=== PATIENT | female | born 1995 | race Caucasian/White ===

== ENCOUNTER 2021-04-18 12:36 | Emergency (ER) | payer SELFPAY ==
--- NOTE | ~2021-04-18 | XR_ITS ---
EXAMINATION: CHEST AND LUMBAR SPINE. CLINICAL INFORMATION: Trauma. Pain. COMPARISON: None TECHNIQUE: 2 views chest and 3 views lumbar spine. FINDINGS: CHEST . The lungs are fairly well-expanded and clear. Heart size and pulmonary vascularity is normal. No gross bony or the body seen. LUMBAR SPINE: There is normal lumbar lordosis. The vertebral heights and alignment is normal. There is loss of L4-L5 and L5-S1 disc height. Rest of the disc heights are unremarkable. No acute fracture, dislocation or lytic process seen. No lytic or sclerotic process seen. XR/XR chest 2V IMPRESSION: Mild degenerative disc changes at L4-L5 and L5-S1 disc levels. No visible acute fracture or dislocation seen. Unremarkable chest exam.
--- NOTE | ~2021-04-18 | CT_ITS ---
EXAM: Noncontrast CT scan of the head and cervical spine. INDICATION: Trauma COMPARISON: None TECHNIQUE: Axial slices were obtained from skull base to vertex and displayed. This was followed by helical, multislice, multidetector axial images from the occiput to the upper thorax. Coronal and sagittal reformats of the cervical spine in addition to coronal reformats of the head were obtained at the technologist workstation. DLP: 1065 mGy-cm FINDINGS: HEAD: There is no evidence of acute intracranial hemorrhage or territorial infarction. No abnormal mass effect or midline shift is appreciated. Hopson-white differentiation is well preserved. No extra-axial fluid collections. The ventricular system and cortical sulci are normal in size. The osseous structures and soft tissues are normal. The visualized paranasal sinuses and mastoid air cells are well aerated. Minimal polypoid mucosal disease of the sphenoid sinus. SPINE: There is mild straightening of the normal cervical lordosis, possibly positional. Cervical vertebral body heights and disc spaces are well-maintained. There is no appreciable degenerative changes of the cervical spine. No prevertebral soft tissue swelling. Visualized lung apices are well aerated. CT/CT cervical spine wo con IMPRESSION: 1. No acute intracranial pathology. 2. No fractures or dislocations of the cervical spine. This CT examination was performed using dose optimization techniques as appropriate, variously including the following: *Automated exposure control *Adjustment of mA and/or kV according to patient size (this includes techniques or standardized protocols for targeted exams where dose is matched to indication/reason for exam; i.e. extremities or head) *Use of iterative reconstruction technique
--- NOTE | ~2021-04-18 | CT_ITS ---
EXAM: Noncontrast CT scan of the head and cervical spine. INDICATION: Trauma COMPARISON: None TECHNIQUE: Axial slices were obtained from skull base to vertex and displayed. This was followed by helical, multislice, multidetector axial images from the occiput to the upper thorax. Coronal and sagittal reformats of the cervical spine in addition to coronal reformats of the head were obtained at the technologist workstation. DLP: 1065 mGy-cm FINDINGS: HEAD: There is no evidence of acute intracranial hemorrhage or territorial infarction. No abnormal mass effect or midline shift is appreciated. Hopson-white differentiation is well preserved. No extra-axial fluid collections. The ventricular system and cortical sulci are normal in size. The osseous structures and soft tissues are normal. The visualized paranasal sinuses and mastoid air cells are well aerated. Minimal polypoid mucosal disease of the sphenoid sinus. SPINE: There is mild straightening of the normal cervical lordosis, possibly positional. Cervical vertebral body heights and disc spaces are well-maintained. There is no appreciable degenerative changes of the cervical spine. No prevertebral soft tissue swelling. Visualized lung apices are well aerated. CT/CT head/brain wo con IMPRESSION: 1. No acute intracranial pathology. 2. No fractures or dislocations of the cervical spine. This CT examination was performed using dose optimization techniques as appropriate, variously including the following: *Automated exposure control *Adjustment of mA and/or kV according to patient size (this includes techniques or standardized protocols for targeted exams where dose is matched to indication/reason for exam; i.e. extremities or head) *Use of iterative reconstruction technique
--- NOTE | ~2021-04-18 | XR_ITS ---
EXAMINATION: CHEST AND LUMBAR SPINE. CLINICAL INFORMATION: Trauma. Pain. COMPARISON: None TECHNIQUE: 2 views chest and 3 views lumbar spine. FINDINGS: CHEST . The lungs are fairly well-expanded and clear. Heart size and pulmonary vascularity is normal. No gross bony or the body seen. LUMBAR SPINE: There is normal lumbar lordosis. The vertebral heights and alignment is normal. There is loss of L4-L5 and L5-S1 disc height. Rest of the disc heights are unremarkable. No acute fracture, dislocation or lytic process seen. No lytic or sclerotic process seen. XR/XR lumbar spine 2-3V IMPRESSION: Mild degenerative disc changes at L4-L5 and L5-S1 disc levels. No visible acute fracture or dislocation seen. Unremarkable chest exam.
[2021-04-18 12:44] VITALS: BP 135/91; PULSE 86; RESP 18; TEMP 36.1; O2SAT 99; BMI 41.1
--- NOTE | 2021-04-18 13:06 | ED_ITS ---
HPI - Back Pain/Injury General Chief Complaint: Back Pain/Injury Stated Complaint: back pain/injury Time Seen by Provider: 04/18/21 13:01 Source: patient and EMS Mode of arrival: EMS Limitations: no limitations History of Present Illness HPI Narrative: This is a 26 years old female was sledding today and hit a tree, she is complaining of neck pain headache lower back pain MD elicited complaint: back injury Pertinent past history: recent trauma Onset (ago): hour(s) (1) Timing: constant Severity: moderate Similar Symptoms Previously: No Quality: dull Location: lumbar spine Exacerbating factors: none Relieving factors: none Related Data Allergies Allergy/AdvReac Type Severity Reaction Status Date / Time amoxicillin Allergy Hives Verified 04/18/21 13:03 Review of Systems Verdana 4l Constitutional: Verdana 4d Constitutional: Verdana 4d Verdana 4d Reports no additional constitutional complaints Verdana 4l ENT: Verdana 4d Reports system reviewed and no additional complaints, except as documented Verdana 4l Respiratory: Verdana 4d Verdana 4d Respiratory: Verdana 4d Reports no additional respiratory complaints Verdana 4l Gastrointestinal: Verdana 4d Gastrointestinal: Verdana 4d Verdana 4d Reports no additional gastrointestinal complaints Verdana 4l Hematologic/Lymphatic: Verdana 4d Hematologic/Lymphatic: Verdana 4d Verdana 4d Reports no additional hematologic/lymphatic complaints PMFSH Past Medical History PMFSH Narrative: depression Social History Social History Alcohol intake: never Use of substances other than those prescribed or required for medical reasons: No Advance Directives: No Advance Directives Information Provided: Yes Patient : No Physical Exam Verdana 4l Vital Signs: Verdana 4d Verdana 4d Vital Signs: Verdana 4d Verdana 4Bd Last Vital Signs Verdana 4d Industrial Sales Manager New 4d Industrial Sales Manager New 4d Temp 98 F 04/18/21 13:43 Industrial Sales Manager New 4d Pulse 82 04/18/21 13:43 Industrial Sales Manager New 4d Resp 17 04/18/21 13:43 BP 114/78 04/18/21 13:43 Pulse Ox 96 04/18/21 13:43 BMI result Body Mass Index 41.1 Const: General: cooperative Nutritional Appearance: well nourished Orientation/consciousness: patient oriented x3 Limitations: no limitations HENMT: Head: Yes normal to inspection Mouth: Normal oral and palatal mucosa present Throat: Yes posterior oropharynx normal Neck: Neck: Yes normal visual inspection and Yes other (tenderness post cspine ) Chest: Chest palpation & inspection: normal inspection of the chest Resp: Effort & Inspection: normal respiratory effort Auscultation: clear to auscultation bilaterally Cardio: Jugular venous distension: no JVD Rate: regular rate Rhythm: regular rhythm GI: Inspection: Yes normal to inspection Palpation (GI): Soft to palpation, not firm, nontender and no guarding Auscultation: normal bowel sounds Skin: General skin exam: no rashes or lesions noted, elasticity normal and turgor normal Rashes: no rashes Neuro: General: patient oriented x3 Course Reevaluation(s) Reevaluation #1: Workup is negative a head CT C-spine chest x-ray and LS-spine no acute fracture okay to discharge on MDM - Back Pain/Injury Imaging Data CT scan - head: Radiologist's impression: FINDINGS: HEAD: There is no evidence of acute intracranial hemorrhage or territorial infarction.? No abnormal mass effect or midline shift is appreciated. Hopson-white differentiation is well preserved.? No extra-axial fluid collections.? The ventricular system and cortical sulci are normal in size. The osseous structures and soft tissues are normal.? The visualized paranasal sinuses and mastoid air cells are well aerated. Minimal polypoid mucosal disease of the sphenoid sinus. SPINE: There is mild straightening of the normal cervical lordosis, possibly positional. Cervical vertebral body heights and disc spaces are well-maintained. There is no appreciable degenerative changes of the cervical spine. No prevertebral soft tissue swelling.? Visualized lung apices are well aerated. CT/CT head/brain wo con IMPRESSION: 1. No acute intracranial pathology. 2. No fractures or dislocations of the cervical spine. ? ? This CT examination was performed using dose optimization techniques as appropriate, variously including the following: ? *Automated exposure control LSspine/CXR: Radiologist's impression: COMPARISON: None? TECHNIQUE: 2 views chest and 3 views lumbar spine.? FINDINGS: CHEST . The lungs are fairly well-expanded and clear. Heart size and pulmonary vascularity is normal. No gross bony or the body seen. LUMBAR SPINE: There is normal lumbar lordosis. The vertebral heights and alignment is normal. There is loss of L4-L5 and L5-S1 disc height. Rest of the disc heights are unremarkable. No acute fracture, dislocation or lytic process seen. No lytic or sclerotic process seen. XR/XR chest 2V IMPRESSION: Mild degenerative disc changes at L4-L5 and L5-S1 disc levels. No visible acute fracture or dislocation seen. ? Unremarkable chest exam. Discharge Plan Discharge Clinical Impression: Neck contusion, Back contusion Patient Disposition: Home, Self-Care Instructions: Cervical Strain (DC) Additional Instructions: Follow up with primary Care Doctor,return if worse,motrin as needed
[2021-04-18 13:43] VITALS: BP 114/78; PULSE 82; RESP 17; TEMP 36.6; O2SAT 96
[2021-04-18] MEDS: Ibuprofen 800 MG TABLET PO (14:46)
== END 2021-04-18 15:43 | disposition home or self-care (01) ==
PROVIDERS: Emergency Provider Emergency Medicine
DX: S10.93XA Contusion of unspecified part of neck, initial encounter (principal); S30.0XXA Contusion of lower back and pelvis, initial encounter; G44.309 Post-traumatic headache, unspecified, not intractable; M54.50 Low back pain, unspecified; M54.2 Cervicalgia; R07.81 Pleurodynia; X58.XXXA Exposure to other specified factors, initial encounter; Y93.9 Activity, unspecified; Y92.9 Unspecified place or not applicable; Y99.9 Unspecified external cause status
CPT/HCPCS: 70450; 71046; 72100; 72125; 99284